=== PATIENT | male | born 1990 | race Caucasian/White ===

== ENCOUNTER 2017-09-25 23:45 | Emergency (ER) | payer OTHER ==
--- NOTE | 2017-09-26 00:44 | ED ---
Psychiatric Complaint - HPI Summary HPI Summary: This is rodolfo Kauffman documenting for Dr. Eyal Hernandez MD. Pt is 27 y/o M BIBA to ED due to mental health complain. His girlfriend called the police because she was afraid of him since he had been drinking and had a gun. Pt states he sometimes does have suicidal and homicidal ideation. Nothing alleviates or exacerbates condition per nurse's report. Pt transferred from [facility] for mental health evaluation. He was restrained by EMS and fought back. Not on any medications. PMHx of depression and anxiety. - History Of Current Complaint Chief Complaint: EDMentalHealth Time Seen by Provider: 09/25/17 23:53 Hx Obtained From: Patient Onset/Duration: Lasting Hours Aggravating Factor(s): Nothing Alleviating Factor(s): Nothing Has Suicidal: Reports: Thoughts Has Homicidal: Reports: Thoughts - Allergies/Home Medications Home Medications: Home Medications NK [No Home Medications Reported] 09/26/17 [History Confirmed 09/26/17] PMH/Surg Hx/FS Hx/Imm Hx Endocrine/Hematology History: Denies: Hx Diabetes Psychiatric History: Reports: Hx Anxiety, Hx Depression Infectious Disease History: No Infectious Disease History: Denies: Traveled Outside the [place] in Last 30 Days - Family History Known Family History: Positive: Diabetes, Other - cancer - Social History Alcohol Use: Occasionally Substance Use Type: Reports: Marijuana Smoking Status (MU): Heavy Every Day Tobacco Smoker Review of Systems Negative: Fever Positive: Other - suicidal and homicidal ideation All Other Systems Reviewed And Are Negative: Yes Physical Exam - Summary Physical Exam Summary: VITAL SIGNS: Reviewed. GENERAL: Patient is a well-developed and nourished male who is lying comfortable in the stretcher. Patient is not in any acute respiratory distress. HEAD AND FACE: Mild abrasion right side of face. No ecchymosis, hematomas or skull depressions. No sinus tenderness. EYES: PERRLA, EOMI x 2, No injected conjunctiva, no nystagmus. EARS: Hearing grossly intact. Ear canals and tympanic membranes are within normal limits. MOUTH: Oropharynx within normal limits. NECK: Supple, trachea is midline, no adenopathy, no JVD, no carotid bruit, no c- spine tenderness, neck with full ROM. CHEST: Symmetric, no tenderness at palpation LUNGS: Clear to auscultation bilaterally. No wheezing or crackles. CVS: Regular rate and rhythm, S1 and S2 present, no murmurs or gallops appreciated. ABDOMEN: Soft, non-tender. No signs of distention. No rebound no guarding, and no masses palpated. Bowel sounds are normal. EXTREMITIES: FROM in all major joints, no edema, no cyanosis or clubbing. NEURO: Alert and oriented x 3. No acute neurological deficits. Speech is normal and follows commands. SKIN: Dry and warm Triage Information Reviewed: Yes Vital Signs On Initial Exam: Initial Vitals Temp Pulse Resp BP Pulse Ox 98.9 F 71 18 102/65 97 09/25/17 23:54 09/25/17 23:54 09/25/17 23:54 09/25/17 23:54 09/25/17 23:54 Vital Signs Reviewed: Yes Diagnostics - Vital Signs Vital Signs Temp Pulse Resp BP Pulse Ox 09/25/17 23:54 98.9 F 71 18 102/65 97 - Laboratory Lab Statement: Any lab studies that have been ordered have been reviewed, and results considered in the medical decision making process. Course/Dx - Course Course Of Treatment: Pt is 27 y/o M RUFINA to ED due to mental health complain. His girlfriend called the police because she was afraid of him since he had been drinking and had a gun. Pt states he sometimes does have suicidal and homicidal ideation. He was transferred from [facility] for mental health evaluation. He was restrained by EMS and fought back. Due to his agitation he was given sedation. Not on any medications. Physical exam revealed mild abrasion on right side of face. Pt alcohol level at 19:30 was 232 so pt is medically cleared for MHE. Pt awaiting mental health evaluation and signed out to Dr. Francis. - Differential Dx/Clinical Impression Provider Diagnosis: Alcohol intoxication Discharge - Sign-Out/Discharge Documenting (check all that apply): Sign-Out Patient Signing out patient TO: Raji Francis - Discharge Plan Referrals: No Primary Care Phys,NOPCP [Primary Care Provider] -
--- NOTE | 2017-09-26 07:24 | ED ---
Progress - Progress Note Progress Note: This patient was signed out from Dr. Hernandez to Dr. Francis, awaiting MHE. MHE was done at [address] Teixeira. The patient will be discharged with dx of alcohol intoxication. Patient understands and agrees. - Consult/PCP Time Called: 01:15 Course/Dx - Course Course Of Treatment: Pt is 27 y/o M RUFINA to ED due to mental health complain. His girlfriend called the police because she was afraid of him since he had been drinking and had a gun. Pt states he sometimes does have suicidal and homicidal ideation. He was transferred from [facility] for mental health evaluation. He was restrained by EMS and fought back. Due to his agitation he was given sedation. Not on any medications. Pt alcohol level at 19:30 was 232 so pt is medically cleared for MHE. Pt awaiting mental health evaluation and signed out to Dr. Francis. Patient is alert and oriented 3, patient is hemodynamically stable, the patient is sober. Patient is ambulating without any difficulty. Patient is eating and drinking. - Diagnoses Provider Diagnoses: Alcohol intoxication Discharge - Sign-Out/Discharge Documenting (check all that apply): Patient Departure - Discharge Plan Condition: Stable Disposition: HOME Patient Education Materials: Alcohol Intoxication (ED) Referrals: [facility] [Outside] Additional Instructions: RETURN TO THE ED FOR ANY WORSENING OR NEW SYMPTOMS. - Billing Disposition and Condition Condition: STABLE Disposition: Home
[2017-09-26 10:32] VITALS: BP 123/84
== END 2017-09-26 15:25 | disposition home or self-care (01) ==
LOC: ED 23:45
DX: F10.129 Alcohol abuse with intoxication, unspecified (principal); S00.81XA Abrasion of other part of head, initial encounter; X58.XXXA Exposure to other specified factors, initial encounter; Y93.9 Activity, unspecified; Y92.9 Unspecified place or not applicable; F17.200 Nicotine dependence, unspecified, uncomplicated
CPT/HCPCS: 99283